=== PATIENT | female | born 1950 | race Asian ===

== ENCOUNTER 2023-12-02 08:00 | Outpatient (CLI) | payer OTHER ==
[~2023-12-02] VITALS: Ht 152.4 cm; Wt 57.6 kg
== END 2023-12-02 15:23 | disposition home or self-care (01) ==
LOC: SLB 08:00 → EDSTATUS 12-10 10:45
PROVIDERS: ATTEND Student in an Organized Health Care Education/Training Program
DX: M17.11 Unilateral primary osteoarthritis, right knee (principal)
CPT/HCPCS: 87081